=== PATIENT | female | born 1950 | race Caucasian/White ===

== ENCOUNTER 2017-04-28 20:30 | Emergency (ER) | payer MEDICARE, OTHER ==
[2017-04-28 21:07] LABS: BILIRUBIN,URINE NEGATIVE (NEGATIVE); PH,URINE 5.5 PH (5.0-7.5)
[2017-04-28 21:16] LABS: UA w/ MICROSCOPIC CHARGE YES
[2017-04-28 21:20] LABS: WBC,URINE >25 /HPF (0-5)
--- NOTE | 2017-04-28 21:27 | ED Physician Documentation ---
PD HPI FEMALE - History obtained from History obtained from: Patient <Homero Sarmiento - Last Filed: 04/29/17 04:13> - History obtained from History obtained from: Patient, Family - History of Present Illness Timing - onset: How many days ago (2) Timing - duration: Days (2) Timing - details: Gradual onset Pain level max: 5 Pain level max: 5 Associated symptoms: Dysuria, Urinary frequency, Hematuria. No: Fever, Back pain, Pelvic pain, Vaginal bleeding Contributing factors: No: Exposed to STD Similar symptoms before: Diagnosis (UTI) Recently seen: Not recently seen <Mohinder Cox - Last Filed: 04/29/17 09:41> - Stated complaint Stated Complaint: FEMALE - Chief complaint Chief Complaint: General - Additional information Additional information: traveling (Mohinder Cox) Review of Systems Constitutional: denies: Fever, Chills GI: denies: Vomiting : reports: Dysuria, Frequency Skin: denies: Rash Musculoskeletal: denies: Neck pain, Back pain Neurologic: denies: Headache <Mohinder Cox - Last Filed: 04/29/17 09:41> PD PAST MEDICAL HISTORY <Homero Sarmiento - Last Filed: 04/29/17 04:13> - Past Medical History Past Medical History: Yes Cardiovascular: Hypertension - Past Surgical History Past Surgical History: No - Living Situation Living Situation: reports: With spouse/s.o. - Social History Does the pt smoke?: No Does the pt have substance abuse?: No - Family History Family history: reports: Non contributory <Mohinder Cox - Last Filed: 04/29/17 09:41> - Present Medications Home Medications: Ambulatory Orders Medication Instructions Recorded Confirmed Lisinopril 10 mg PO DAILY 04/28/17 04/28/17 Nitrofurantoin Monohyd/M-Cryst 100 mg PO BID #10 capsule 04/28/17 [Macrobid 100 mg Capsule] Phenazopyridine HCl [Pyridium] 200 mg PO TID PRN #6 tablet 04/28/17 - Allergies Allergies/Adverse Reactions: Allergies Allergy/AdvReac Type Severity Reaction Status Date / Time No Known Drug Allergies Allergy Verified 04/28/17 20:37 PD ED PE NORMAL - Vitals Vital signs reviewed: Yes - General General: Alert and oriented X 3, No acute distress - HEENT HEENT: Moist mucous membranes - Cardiac Cardiac: RRR - Respiratory Respiratory: No respiratory distress, Clear bilaterally - Abdomen Abdomen: Soft, Non tender, Non distended - Back Back: No CVA TTP - Neuro Neuro: Alert and oriented X 3 - Psych Psych: Normal mood, Normal affect <Mohinder Cox - Last Filed: 04/29/17 09:41> - Vitals Vitals: Vital Signs - 24 hr 04/28/17 04/28/17 20:34 21:42 Temperature 36.3 C L Heart Rate 69 69 Respiratory 16 16 Rate Blood Pressure 165/88 H 150/85 H O2 Saturation 98 100 Oxygen O2 Source Room air - Labs Labs: Laboratory Tests 04/28/17 20:45 Urine Color LT RED Urine Clarity HAZY Urine pH 5.5 Ur Specific [place] <=1.005 Urine Protein 30 H Urine Glucose (UA) NEGATIVE Urine Ketones NEGATIVE Urine Occult Blood LARGE H Urine Nitrite NEGATIVE Urine Bilirubin NEGATIVE Urine Urobilinogen 0.2 (NORMAL) Ur Leukocyte Esterase LARGE H Urine RBC 6-10 H Urine WBC >25 H Urine WBC Clumps PRESENT Ur Squamous Epith Cells MOD Squamous H Urine Bacteria Few Ur Microscopic Review INDICATED PD MEDICAL DECISION MAKING <Homero Sarmiento - Last Filed: 04/29/17 04:13> - ED course Complexity details: reviewed results, re-evaluated patient, considered differential, d/w patient, d/w family <Mohinder Cox - Last Filed: 04/29/17 09:41> - ED course ED course: Patient is a 66-year-old female who presents to the emergency department with symptoms consistent with UTI. Urinalysis appears consistent with a UTI as well. Will place on antibiotics and Pyridium for home. She is well-appearing, nontoxic. Afebrile. No evidence of pyelonephritis. Patient counseled regarding signs and symptoms for which I believe and urgent re-evaluation would be necessary. Patient with good understanding of and agreement to plan and is comfortable going home at this time This document was made in part using voice recognition software. While efforts are made to proofread this document, sound alike and grammatical errors may occur. (Mohinder oCx) Departure <Homero Sarmiento - Last Filed: 04/29/17 04:13> <Mohinder Cox - Last Filed: 04/29/17 09:41> - Departure Disposition: 01 Home, Self Care Clinical Impression: UTI (urinary tract infection) Qualifiers: Urinary tract infection type: acute cystitis Hematuria presence: with hematuria Qualified Code(s): N30.01 - Acute cystitis with hematuria Condition: Good Instructions: ED UTI Cystitis Female Follow-Up: your,doctor as needed [Other] Prescriptions: Nitrofurantoin Monohyd/M-Cryst [Macrobid 100 mg Capsule] 100 mg PO BID #10 capsule Phenazopyridine HCl [Pyridium] 200 mg PO TID PRN #6 tablet PRN Reason: dysuria Comments: Take all antibiotics until gone. Return if you worsen. Discharge Date/Time: 04/28/17 21:52
[2017-04-28] MEDS ORDERED: PHENAZOPYRIDINE 100 MG TABLET PO STA (21:28)
[2017-04-28] MEDS ORDERED: NITROFURANTOIN MACRO 100 MG CAPSULE PO STA (21:28)
[2017-04-28] MEDS ORDERED: NITROFURANTOIN MACRO 100 MG CAPSULE PO ONE (21:41)
[2017-04-28] MEDS ORDERED: PHENAZOPYRIDINE 100 MG TABLET PO ONE (21:41)
[2017-04-28 21:44] VITALS: BP 150/85
== END 2017-04-28 21:52 | disposition home or self-care (01) ==
LOC: ED 20:30
DX: N30.01 Acute cystitis with hematuria (principal); I10 Essential (primary) hypertension
CPT/HCPCS: 81001; 99283; A9270; 81003